=== PATIENT | female | born 1985 | race Caucasian/White ===

== ENCOUNTER 2020-04-30 20:01 | Emergency (ER) | payer OTHER ==
[~2020-04-30] VITALS: Ht 162.6 cm; Wt 86.4 kg
[2020-04-30 22:12] VITALS: BP 134/92
--- NOTE | 2020-04-30 22:17 | REPVR ---
PROCEDURE INFORMATION: Exam: US Duplex Left Lower Extremity Veins, Limited Exam date and time: 04/30/2020 9:56 PM Age: 34 years old Clinical indication: Pain; Leg, lower; Left; Additional info: Calf pain, R/O dvt TECHNIQUE: Imaging protocol: Real-time Duplex ultrasound of the Left Lower Extremity with 2-D boyle scale, color Doppler flow and spectral waveform analysis with image documentation. Limited exam focused on the left lower extremity veins. COMPARISON: No relevant prior studies available. FINDINGS: Left deep veins: Unremarkable. The common femoral, femoral, proximal profunda femoral and popliteal veins are patent without thrombus. Normal Doppler waveforms. Normal compressibility and/or augmentation response. Left superficial veins: Unremarkable. Saphenofemoral junction is patent without thrombus. Soft tissues: Unremarkable. IMPRESSION: No evidence of deep vein thrombosis. Electronically signed by: Parker Tse On 04/30/2020 22:17:18 PM
[2020-04-30] MEDS ORDERED: ANEC4CRE3 TOP (22:54)
== END 2020-04-30 23:01 | disposition home or self-care (01) ==
LOC: M ED 20:01
DX: M79.662 Pain in left lower leg (principal)